=== PATIENT | female | born 1995 | race Two or more races ===

== ENCOUNTER 2023-09-12 07:33 | Day surgery (SDC) | payer OTHER | END 2023-09-12 22:27 | disposition home or self-care (01) | LOC: CIR.AMB 07:33 | PROVIDERS: ATTEND Colon & Rectal Surgery | DX: K64.2 Third degree hemorrhoids (principal); K64.4 Residual hemorrhoidal skin tags; K64.8 Other hemorrhoids; Z88.0 Allergy status to penicillin; Z91.013 Allergy to seafood; Z20.822 Contact with and (suspected) exposure to COVID-19 ==